=== PATIENT | male | born 1980 | race Caucasian/White ===

== ENCOUNTER 2017-10-30 00:32 | Emergency (ER) | payer OTHER ==
[~2017-10-30] VITALS: Ht 160 cm; Wt 96.0 kg
[2017-10-30 00:42] VITALS: TEMP 37; Ht 160 cm; Wt 96.0 kg
[2017-10-30] MEDS ORDERED: NICOTINE 14 MG/24 HR TDSY TD ONE (01:15)
[2017-10-30 01:23] LABS: HEMATOCRIT 53.7 % (42-52); HEMOGLOBIN 18.9 g/dL (14.0-18.0); MEAN CELL VOLUME 92.3 fL (80-100); MEAN CORPUSCULAR HEMOGLOBIN 32.5 pg (25-34); MEAN CORPUSCULAR HGB CONC 35.2 g/dl (32-36); MEAN PLATELET VOLUME 11.5 fL (7.4-10.4); PLATELET COUNT 208 K/uL (130-400); RED CELL DISTRIBUTION WIDTH CV 13.4 % (11.5-14.5); RED CELL DISTRIBUTION WIDTH SD 45.1 fL (36.4-46.3); WHITE BLOOD COUNT 7.58 K/uL (4.8-10.8)
[2017-10-30 01:41] LABS: ALBUMIN 4.1 gm/dl (3.4-5.0); ALT/SGPT 43 U/L (12-78); BLOOD UREA NITROGEN 9 mg/dl (7-18); CALCIUM 8.9 mg/dl (8.5-10.1); CARBON DIOXIDE 23 mmol/L (21-32); CREATININE 1.09 mg/dl (0.60-1.40); GLUCOSE 132 mg/dl (70-99); POTASSIUM 3.9 mmol/L (3.5-5.1); SODIUM 139 mmol/L (136-145)
[2017-10-30 01:51] LABS: ALKALINE PHOSPHATASE 62 U/L (45-117); AST/SGOT 16 U/L (15-37); TOTAL PROTEIN 7.8 gm/dl (6.4-8.2)
[2017-10-30 06:05] VITALS: BP 147/80; PULSE 75; O2SAT 98
--- NOTE | 2017-10-30 06:29 | EMERGENCY ROOM VISIT NOTE ---
History Report prepared by Holli: Scarlet Cantu Under the Supervision of: Dr. Ofelia Finney D.O. First contact with patient: 00:37 Chief Complaint: MENTAL HEALTH EVALUATION Stated Complaint: MENTAL HEALTH EVALUATION History of Present Illness The patient is a 37 year old male who presents to the Emergency Room for a mental health evaluation. The patient states that he has been drinking some tonight and states that he is unsure if he was depressed before drinking or not. The patient reports that he thinks it was a combination of things over the last month that have led to tonight with a certain trigger. The patient states that his marriage has been falling apart for some time and he met someone new. He reports that things were going well and then they weren't. He states that it was decide they would just be friends and he didn't take it well. He reports that they came to this conference together and were going to spend the weekend together. He reports that they had dinner together and things were fine. The patient states that her boyfriend then showed up and he lost it. He states that he has had an episode like this before when his cheated on him years ago and he spent 3 days in a Psychiatric facility. He reports that he then took Zoloft for a year to help with the depression. The patient states that he decided to put two 18 gauge needles into his arms to let himself bleed to . He states that he had no plan of injecting anything into them. He states he believes he lost no more than 500 ccs of blood. The patient states he is staying alone in a hotel room for the conference and that he was found because he texted a friend some dark messages. The patient denies abdominal pain, urinary symptoms, abnormal bowel movements, and other drug use. He notes a history of hypertension. Source of History: patient Onset: prior to arrival Position: other (global) Quality: other (mental health) Timing: other (episode) Associated Symptoms: No abdominal pain, No urinary symptoms Note: The patient denies abnormal bowel movements. Review of Systems See HPI for pertinent positives & negatives. A total of 10 systems reviewed and were otherwise negative. Past Medical & Surgical Medical Problems: (1) Depression (2) HTN (hypertension) Family History Patient reports no known family medical history. Social History Alcohol Use: occasionally Marital Status: Housing Status: lives with family Occupation Status: employed Current/Historical Medications No Active Prescriptions or Reported Meds Allergies Coded Allergies: No Known Allergies (Unverified , 10/30/17) Physical Exam Vital Signs Date Time Temp Pulse Resp B/P (MAP) Pulse Ox O2 Delivery O2 Flow Rate FiO2 10/30/17 06:05 75 18 147/80 98 10/30/17 02:37 108 18 152/92 96 Room Air 10/30/17 00:42 37.0 110 18 200/107 97 Room Air Physical Exam HEENT: Head - normocephalic and atraumatic Pupils are equal, round, and reactive to light. Extraocular eye muscles are intact, and sclera are injected. Nose - moist nasal mucosa without discharge. Mouth - moist buccal mucosa. Oropharynx is nonerythematous and there is no tonsillar exudate or edema noted. Neck: Supple; no JVD, nuchal rigidity, cervical lymphadenopathy. Heart: Tachycardic rate and regular rhythm. There is a normal S1 and S2 with no murmurs, clicks, or gallops appreciated. Lungs: Clear to auscultation bilaterally with no wheezes, rales, or rhonchi. Abdomen: Soft, completely nontender, nondistended, with good bowel sounds. There are no palpable pulsatile masses or hepatosplenomegaly. There is no guarding, rigidity, or rebound noted. Extremities: No evidence of cyanosis, clubbing, or edema. There are easily palpable peripheral pulses. 2 IV start sites in the cubital fossa bilaterally with surrounding hematoma. Skin: warm and dry with good turgor and no rashes. Psych: Admits to depression and thoughts of suicide but believes that he would not act upon them and was only feeling this way because he was drunk. Medical Decision & Procedures Laboratory Results 10/30/17 01:05 10/30/17 01:05 Test 10/30/17 00:00 10/30/17 01:05 Urine Opiates Screen NEG (NEG) Urine Methadone, Qualitative NEG (NEG) Urine Barbiturates NEG (NEG) Urine Phencyclidine (PCP) Level NEG (NEG) Ur Amphetamine/Methamphetamine NEG (NEG) MDMA (Ecstasy) Screen NEG (NEG) Urine Benzodiazepines Screen NEG (NEG) Urine Cocaine Metabolite NEG (NEG) Urine Marijuana (THC) NEG (NEG) Red Blood Count 5.82 M/uL (4.7-6.1) Mean Corpuscular Volume 92.3 fL (80-100) Mean Corpuscular Hemoglobin 32.5 pg (25-34) Mean Corpuscular Hemoglobin Concent 35.2 g/dl (32-36) RDW Standard Deviation 45.1 fL (36.4-46.3) RDW Coefficient of Variation 13.4 % (11.5-14.5) Mean Platelet Volume 11.5 fL (7.4-10.4) Anion Gap 8.0 mmol/L (3-11) Est Creatinine Clear Calc Drug Dose 95.2 ml/min Estimated GFR () 100.0 Estimated GFR (Non- 86.3 BUN/Creatinine Ratio 8.1 (10-20) Calcium Level 8.9 mg/dl (8.5-10.1) Total Bilirubin 0.3 mg/dl (0.2-1) Direct Bilirubin < 0.1 mg/dl (0-0.2) Aspartate Amino Transf (AST/SGOT) 16 U/L (15-37) Alanine Aminotransferase (ALT/SGPT) 43 U/L (12-78) Alkaline Phosphatase 62 U/L (45-117) Total Protein 7.8 gm/dl (6.4-8.2) Albumin 4.1 gm/dl (3.4-5.0) Thyroid Stimulating Hormone (TSH) 0.519 uIu/ml (0.300-4.500) Salicylates Level 3.0 mg/dl (2.8-20) Acetaminophen Level < 2 ug/ml (10-30) Ethyl Alcohol mg/dL 158.1 mg/dl (0-3) Laboratory results per my review. Medications Administered Medications (Trade) Dose Ordered Sig/Nohemy Route Start Time Stop Time Status Last Admin Dose Admin Nicotine (Nicoderm Cq 14MG Patch) 1 patch ONE ONCE TD 10/30/17 01:15 10/30/17 01:16 DC 10/30/17 01:20 1 PATCH Procedure 0115: Ordered Nicotine 1 patch TD. ED Course 0040: Past medical records reviewed. The patient was evaluated in room A5. A complete history and physical exam was performed. Labs were drawn as above. 0111: The nurse called and stated the patient wants Ativan. I declined at this time because of his alcohol use. 0115: Ordered Nicotine 1 patch TD. 0255: I reevaluated the patient and he is resting comfortably. He will be evaluated by [address] [place] [address] at 0330. 4241: I had multiple discussions with the staff from [facility] The patient was willing to call his brother to come pick him up and agreed that he would watch over him. The brother is aware of the situation that occurred tonight. The patient plans to follow-up with his PCP as well as his therapist. Upon reevaluation, I discussed his safety plan with him. I discussed findings and results with him. He verbalized agreement of the treatment plan. The patient was discharged home. Medical Decision The patient is a 37 year old male who presents to the Emergency Room for a mental health evaluation. Differential diagnoses include alcohol intoxication, suicide attempt, mood disorder. Labs: Alcohol 158 No leukocytosis Hemoglobin 18.9 Normal TSH and LFTs Glucose 132 Normal renal function Urine Tox Screen Negative Negative Tylenol and Aspirin This is a 37-year-old male patient who presents to the emergency department after becoming intoxicated and having thoughts of suicide with an active furtherance. I spent a great deal of time with this patient discussing this situation. He denied feeling suicidal throughout his stay here in the emergency department. He was willing to contract for safety with the help of his brother. The staff from [facility] will follow up with this patient over the next 2 days. Medication Reconcilliation Current Medication List: was personally reviewed by me Blood Pressure Screening Patient's blood pressure: Elevated blood pressure Blood pressure disposition: Referred to PCP Impression Primary Impression: Mood disorder Scribe Attestation The scribe's documentation has been prepared under my direction and personally reviewed by me in its entirety. I confirm that the note above accurately reflects all work, treatment, procedures, and medical decision making performed by me. Departure Information Dispostion Home / Self-Care Prescriptions No Active Prescriptions or Reported Meds Forms HOME CARE DOCUMENTATION FORM, IMPORTANT VISIT INFORMATION Patient Instructions [facility] Additional Instructions If you have any further thoughts of wanting to hurt yourself, call 911. Please follow up with your therapist and PCP. Avoid all alcohol.
== END 2017-10-30 06:05 | disposition home or self-care (01) ==
LOC: EDBD 00:32 → C.EDA 00:35
DX: F39 Unspecified mood [affective] disorder (principal); I10 Essential (primary) hypertension